=== PATIENT | male | born 1945 | race Caucasian/White ===

== ENCOUNTER → 2020-03-07 | Outpatient (CLI) | payer MEDICARE, OTHER ==
--- NOTE | 2020-03-07 15:58 | RADIOLOGY REPORT (SQ) ---
EXAM DESCRIPTION: UGI W/ DOUBLE CONTRAST IMAGES COMPLETED DATE/TIME: 03/07/2020 2:07 pm REASON FOR STUDY: K92.1 MELENA K92.1 MELENA COMPARISON: None. TECHNIQUE: Under fluoroscopic guidance, patient ingested effervescent granules followed by thick and thin barium. Fluoroscopic spot images and routine radiographic images acquired and stored on PACS. 12 MM BARIUM TABLET GIVEN: Yes. No significant delay in passage. LIMITATIONS: None. FLUOROSCOPY TIME: FLUORO TIME: 3.3 minutes 22 images saved to PACS. FINDINGS: NEUROMUSCULAR COORDINATION OF SWALLOW: Normal. No aspiration. 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 GASTRO-ESOPHAGEAL JUNCTION: Postsurgical anastomosis without evidence of stricture or extravasation. STOMACH: Intrathoracic stomach status post gastric pull-through. Intraluminal debris noted within th e gastric lumen. GASTRIC OUTLET: No delay in emptying. DUODENAL BULB: Normal distension. Large duodenum diverticulum noted. No evidence of ulceration. DUODENUM: Mucosa normal. No extrinsic masses or malrotation. PROXIMAL SMALL BOWEL: Mucosa normal. No extrinsic masses or malrotation. Additional small bowel div erticulum. NON-GI TRACT STRUCTURES: No significant finding. OTHER: No other significant finding. 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 Patent anastomosis without evidence of high-grade stricture or leak. Debris-filled stomach. COMMENT: Quality ID [id number]: Final reports for procedures using fluoroscopy that document radiation exp osure indices, or exposure time and number of fluorographic images (if radiation exposure indices are not available) TECHNICAL DOCUMENTATION: JOB ID: [id number] 2010 [employer]- All Rights Reserved Reading location - IP/workstation name: [email or web address]
== END ==
LOC: RAD 13:16
PROVIDERS: ATTEND Internal Medicine Gastroenterology
DX: K92.1 Melena (principal); R11.11 Vomiting without nausea
CPT/HCPCS: 74246

== ENCOUNTER → 2020-03-23 | Outpatient (CLI) | payer OTHER ==
[2020-03-23 11:33] LABS: HEMATOCRIT 40.3 % (37.9-51.0); HEMOGLOBIN 13.5 g/dL (13.5-17.0); MEAN CORPUSCULAR HEMOGLOBIN 31.3 pg (27.0-33.4); MEAN CORPUSCULAR HGB CONC 33.6 g/dL (32.0-36.0); MEAN CORPUSCULAR VOLUME 93 fl (80-97); PLATELET COUNT 199 10^3/uL (150-450); RED BLOOD COUNT 4.31 10^6/uL (4.35-5.55); RED CELL DISTRIBUTION WIDTH 13.9 % (11.5-14.0); WHITE BLOOD COUNT 6.8 10^3/uL (4.0-10.5)
== END ==
LOC: OD 10:09
PROVIDERS: ATTEND Physician Assistant
DX: K92.1 Melena (principal)
CPT/HCPCS: 36415; 85027